=== PATIENT | male | born 1950 | race Two or more races ===

== ENCOUNTER 2017-10-13 13:25 | Day surgery (SDC) | payer MEDICARE ==
[~2017-10-13] VITALS: Ht 182.9 cm; Wt 122.5 kg
[2017-10-13 02:30] VITALS: PULSE 78; RESP 16; O2SAT 97
[~2017-10-13 13:25] MED LIST: LIDOCAINE HCL 1% PF 5 ML SYRINGE OTHER ONE; METOPROLOL TARTRATE 5 MG/5 ML VIAL IV ONE; PHENYLEPH/NS 1000 MCG/10 ML SYR IV ONE; PHENYLEPHRINE HCL 10 MG/ML VIAL IV ONE; PROPOFOL 200 MG/20 ML AMP IV ONE; ROCURONIUM INJ 50 MG/5 ML SYRINGE IV PUSH ONE; SODIUM CHLOR 0.9% 250 ML INJ 250 ML IV ONE; SODIUM CHLORID 0.9% 500 ML INJ 1,000 ML IV ONE; ePHEDrine/NS 25 MG/5 ML SYRINGE IV ONE
[2017-10-13] MEDS ORDERED: LACTATED RINGER'S 1000 ML IV PRN (14:00)
[2017-10-13] MEDS ORDERED: METOPROLOL TARTRATE 25 MG TAB PO PRN (14:15)
[2017-10-13] MEDS ORDERED: CHLORHEXIDINE GLUCONATE 2 % 1 PACK (2 CLOTHS) TOPICAL PRN (14:15)
[2017-10-13] MEDS ORDERED: POVIDONE IODINE 5% (ANTISEPSIS KIT) 4 APPLICATIONS EACH NARE PRN (14:15)
[2017-10-13] MEDS ORDERED: SODIUM CHLORID 0.9% 500 ML IV PRN (14:15)
[2017-10-13 14:22] VITALS: BP 111/68; PULSE 86; RESP 18; TEMP 98.6; O2SAT 93
[2017-10-13] MEDS ORDERED: LORazepam 1 MG TAB SL SCH (14:30)
[2017-10-13] MEDS ORDERED: FURO40TA PO (14:41)
[2017-10-13] MEDS ORDERED: METF850T PO (14:41)
[2017-10-13] MEDS ORDERED: CHOL1CAP34 PO (14:41)
[2017-10-13] MEDS ORDERED: LISI-515 PO (14:41)
[2017-10-13] MEDS ORDERED: SPIR25TA PO (14:41)
[2017-10-13] MEDS ORDERED: AMLO10TA2 PO (14:41)
[2017-10-13] MEDS ORDERED: TRAZ100T10 PO (14:41)
[2017-10-13] MEDS ORDERED: NITR1SUB3 SL (14:41)
[2017-10-13] MEDS ORDERED: ECASA81 PO (14:41)
[2017-10-13] MEDS ORDERED: APIX5TAB PO (14:41)
[2017-10-13] MEDS ORDERED: CARV12.52 PO (14:41)
[2017-10-13 14:49] LABS: BASOPHIL # 0.1 TH/MM3 (0-0.2); BASOPHIL % 0.7 % (0.0-2.0); EOSINOPHIL # 0.1 TH/MM3 (0-0.4); EOSINOPHIL % 1.9 % (0.0-4.0); HEMOGLOBIN 12.4 GM/DL (13.0-17.0); LYMPHOCYTE # 1.8 TH/MM3 (1.0-4.8); MEAN CELL VOLUME 86.3 FL (80.0-100.0); MEAN CORPUSCULAR HEMOGLOBIN 28.8 PG (27.0-34.0); MEAN CORPUSCULAR HGB CONC 33.4 % (32.0-36.0); MEAN PLATELET VOLUME 9.1 FL (7.0-11.0); MONOCYTE # 0.8 TH/MM3 (0-0.9); NEUT % 64.4 % (16.0-70.0); PLATELET COUNT 261 TH/MM3 (150-450); RED BLOOD COUNT 4.29 MIL/MM3 (4.50-5.90); RED CELL DISTRIBUTION WIDTH 14.1 % (11.6-17.2); WHITE BLOOD COUNT 7.7 TH/MM3 (4.0-11.0)
[2017-10-13 14:58] LABS: BICARBONATE 25.8 MEQ/L (21.0-32.0); CALCIUM 9.5 MG/DL (8.5-10.1); CREATININE 1.77 MG/DL (0.60-1.30)
[2017-10-13 15:01] LABS: INTERNATIONAL NORMALIZED RATIO 1.1 RATIO; PROTHROMBIN TIME - PATIENT 10.7 SEC (9.8-11.6)
[2017-10-13] MEDS ORDERED: LEVOFLOXACIN 500 MG PREMIX INJ 100 ML IV ONE (16:09)
[2017-10-13] MEDS ORDERED: HEPARIN-NS/PF FLUSH BAG 2,000 ML IV FLUSH ONE (16:09)
[2017-10-13] MEDS: SODIUM CHLORID 0.9% 500 ML INJ 500 ML IV SCH (18:00)
[2017-10-13] MEDS ORDERED: PROTAMINE SULFATE 50 MG/5 ML VIAL ONE ×2 (18:26→20:57)
[2017-10-13] MEDS ORDERED: HEPARIN SODIUM - IV 10,000 UNITS/10 ML VIAL ONE (18:26)
[2017-10-13] MEDS ORDERED: HEPARIN-D5W 25,000 U/250 ML 250 ML ONE (18:26)
[2017-10-13] MEDS ORDERED: MIDAZOLAM HCL 2 MG/2 ML VIAL ONE (19:25)
[2017-10-13] MEDS ORDERED: FUROSEMIDE 40 MG/4 ML VIAL ONE (20:43)
[2017-10-13] MEDS ORDERED: ERGOCALCIFEROL (VIT D2) 50,000 UNIT CAP PO SCH (21:00)
[2017-10-13] MEDS ORDERED: LIDOCAINE HCL 1% 50 ML VIAL INFIL PRN (21:00)
[2017-10-13] MEDS ORDERED: ONDANSETRON HCL 4 MG/2 ML VIAL IV PUSH PRN (21:00)
[2017-10-13] MEDS ORDERED: LORazepam 2 MG/ML VIAL IV PUSH PRN (21:00)
[2017-10-13] MEDS ORDERED: oxyCODONE/ACETAMINOPHEN 5 MG/325 MG TAB PO PRN ×2 (21:00)
[2017-10-13] MEDS ORDERED: METOCLOPRAMIDE HCL 10 MG/2 ML VIAL IV PUSH PRN (21:00)
[2017-10-13] MEDS: APIXABAN 5 MG TABLET PO SCH (21:00)
[2017-10-13] MEDS ORDERED: SODIUM CHLOR 0.9% 250 ML INJ 250 ML IV PRN (21:00)
[2017-10-13] MEDS ORDERED: ATROPINE SULFATE 1 MG/ML VIAL IV PUSH PRN (21:00)
[2017-10-13] MEDS: traZODone HCL 100 MG TAB PO SCH (21:00)
[2017-10-13] MEDS ORDERED: BACITRACIN OINT 0.9 GM PKT TOP ONE (21:00)
--- NOTE | 2017-10-13 21:09 | CATHPROC ---
Patient Name: VIKTORIA CARRILLO Study #: [id number] Initial MD: Shea Simon Date of : 1950 Study Date: 10/13/2017 Cardiac Catheterization Report 10/13/2017 9:09:27 PM Financial #: [id number] 1 of 11 Patient Name: VIKTORIA CARRILLO Study #: [id number] Initial MD: Shea Simon Date of : 1950 Study Date: 10/13/2017 Entire Case Report Patient Information Patient Name VIKTORIA CARRILLO Date of 1950 Age 67 years Financial # [id number] Gender M AlternateID Lab Number 2 Room Number DC08 Height (in) 72.0 Height (cm) 182.9 BSA 2.41 Weight (lbs) 266.4 Weight (kg) 121.1 Patient Address/Phone Number Home Address [facility] Home Phone Number [address] [facility] [place] [address] Study Information Study Number Admission Scheduled Start Study Start [id number] Oct 13 2017 1:25PM 10/13/2017 Oct 13 2017 5:39PM [facility] Electrophysiology Study Admit Source Facility Department Other [facility] Physician and Clinical Staff Initial Shea Olvera Cna Gna Hiral Dove,SNAPPER ON TECH2 Other Anesthesia, GRANULAR OPERATOR Recorder Claudia Olmedo,DEVIN Scrub Pawan Lawrence,RT(R) Procedures Performed Procedure Location (Site) Vessel Name Ablation Procedure Cardioversion ICE CATHETER INSERT RA Atruim RF Ablation LT. ATRIUM LT. ATRIUM 10/13/2017 9:09:27 PM Financial #: [id number] 2 of 11 Patient Name: VIKTORIA CARRILLO Study #: [id number] Initial MD: Shea Simon Date of : 1950 Study Date: 10/13/2017 Equipment Time Segment Producer Description Size Mfg Part Number Used/Scraped NEEDLE, TRANSSEPTAL NRG 98 [id number] 17:59 [facility] Used C1 *[id number] [employer]/ EP [id number] 17:59 KIT, TRANSDUCER / AFIB Used PACER *[id number] CATHETER, TACTICATH ABLAT BUNDLE 17:59 [facility] Used 65 BUNDLE *[id number]- BUNDLE [id number] CATHETER, FR7 OPTIMA SPIRAL 17:59 [facility] [facility] FR7 *[id number]- Used BUNDLE BUNDLE [id number] 17:59 [employer] CATHETER, JSN, QUAD BUNDLE FR 5 *[id number]- Used BUNDLE [id number] 17:59 [employer] CATHETER, JSN, QUAD BUNDLE FR 5 *4170736- Used BUNDLE [id number] SET, COOL POINT TUBING 17:59 [employer] *1094134- Used BUNDLE BUNDLE SHEATH, FR8.5 STEERABLE SM 17:59 [employer] 71CM [id number] Used 71CM BUNDLE COVER, TRANSDUCER CABLE 612-113 17:59 [employer] Used ACUNAV *[id number] 17:59 CORDIS/PACER SHEATH, FR10 JESSICA 11CM FR 10 Used *[id number] 17:59 CORDIS/PACER SHEATH, FR9 JESSICA 11CM FR 9 [id number] Used [id number] 17:59 [employer] PACK, CCL CUSTOM * Used *[id number] 17:59 MEDLINE PACER GRAMAJO, LIMB * 2530 *0983867 Used [id number] 17:59 [employer] MEDICAL SHEATH, FR4.5 PRELUDE 11CM FR 4.5 Used 035ACT [id number] 17:59 NAMIC TUBING, HIGH PRESSURE 48" 48" Used *[id number] [id number] 17:59 NAMIC TUBING, HIGH PRESSURE 48" 48" Used *[id number] [id number] 17:59 [employer],WARM AIR CCL * Used *6850038 YS8851 17:59 [facility] MEDICAL ELECTRODE KIT, ELVIA X SURFACE * Used *2545740 197401 17:59 [facility] MEDICAL SHEATH, EPS, FR6 FAST CATH FR 6 Used *[id number] 17:59 [facility] MEDICAL SHEATH, EPS, FR7 FAST CATH FR 7 [id number] Used 897066 17:59 [facility] MEDICAL SHEATH, EPS, FR8 FAST CATH FR 8 Used *[id number] CATHETER, ACUNAV FR10 ICE [id number] 19:03 IKER FR 10 Used (IKER) *[id number] [facility] PAD, ELECTROSURGICAL 17:59 * [id number] *[id number] Used SURGICAL GROUNDING (BLUE) 10/13/2017 9:09:27 PM Financial #: [id number] 3 of 11 Patient Name: VIKTORIA CARRILLO Study #: [id number] Initial MD: Shea Simon Date of : 1950 Study Date: 10/13/2017 Insurance Information Insurance Payor Private Health Insurance Third Alliance Party Third Alliance Party Number [facility] History: Allergies Allergy Reaction No Known Allergies Medication Medication Total Dose (Bolus/Oral) Medication Total Dosage/Unit 1% XYLOCAINE 40 mL HEPARIN 68464 units METOPROLOL 5 mg PROTAMINE 50 mg 10/13/2017 9:09:27 PM Financial #: [id number] 4 of 11 Patient Name: VIKTORIA CARRILLO Study #: [id number] Initial MD: Shea Simon Date of : 1950 Study Date: 10/13/2017 Medications (Bolus/Oral) Medication Time Given Dosage/Unit Administered By Reason 1% XYLOCAINE 10/13/2017 6:56:47 PM 20 mL Shea Simon 20 mL 1% XYLOCAINE given in lab by Shea Simon in Left Groin via Subcutaneous. 1% XYLOCAINE 10/13/2017 7:01:02 PM 20 mL Shea Simon 20 mL 1% XYLOCAINE given in lab by Shea Simon in Right Groin via Subcutaneous. HEPARIN 10/13/2017 7:07:00 PM 69650 units Anesthesia, GRANULAR OPERATOR As per physicians v erbal order 06931 units HEPARIN given in lab by Anesthesia, GRANULAR OPERATOR via Peripheral IV. Ordered by Shea Simon. [place] son: As per physicians verbal order. HEPARIN 10/13/2017 7:21:19 PM 2000 units Anesthesia, GRANULAR OPERATOR As per physicians ve rbal order 2000 units HEPARIN given in lab by Anesthesia, GRANULAR OPERATOR via Peripheral IV. Ordered by Shea Simon. Reas on: As per physicians verbal order. HEPARIN 10/13/2017 7:32:11 PM 2000 units Anesthesia, GRANULAR OPERATOR As per physicians ve rbal order 2000 units HEPARIN given in lab by Anesthesia, GRANULAR OPERATOR via Peripheral IV. Ordered by Shea Simon. Reas on: As per physicians verbal order. HEPARIN 10/13/2017 7:46:53 PM 2000 units Anesthesia, GRANULAR OPERATOR As per physicians ve rbal order 2000 units HEPARIN given in lab by Anesthesia, GRANULAR OPERATOR via Peripheral IV. Ordered by Shea Simon. Reas on: As per physicians verbal order. HEPARIN 10/13/2017 8:01:12 PM 2000 units Anesthesia, GRANULAR OPERATOR As per physicians ve rbal order 2000 units HEPARIN given in lab by Anesthesia, GRANULAR OPERATOR via Peripheral IV. Ordered by Shea Simon. Reas on: As per physicians verbal order. HEPARIN 10/13/2017 8:01:59 PM 1500 units Anesthesia, GRANULAR OPERATOR As per physicians ve rbal order 1500 units HEPARIN given in lab by Anesthesia, GRANULAR OPERATOR via Peripheral IV. Ordered by Shea Simon. Reas on: As per physicians verbal order. drip increased. METOPROLOL 10/13/2017 8:42:00 PM 5 mg Anesthesia, GRANULAR OPERATOR As per physicians filemon bal order 5 mg METOPROLOL given in lab by Anesthesia, GRANULAR OPERATOR via Peripheral IV. Ordered by Shea Simon. Reason: As per physicians verbal order. PROTAMINE 10/13/2017 8:46:40 PM 40 mg Anesthesia, GRANULAR OPERATOR As per physicians filemon bal order 40 mg PROTAMINE given in lab by Anesthesia, GRANULAR OPERATOR via Peripheral IV. Ordered by Shea Simon. Reason: As per physicians verbal order. PROTAMINE 10/13/2017 8:57:34 PM 10 mg Anesthesia, GRANULAR OPERATOR As per physicians filemon bal order 10 mg PROTAMINE given in lab by Anesthesia, GRANULAR OPERATOR via Peripheral IV. Ordered by Shea Simon. Reason: As per physicians verbal order. Medication (Drip) Medication Time Given Dosage/Unit Concentration/Unit Diluent (ml) Solution HEPARIN DRIP 10/13/2017 7:21:33 PM 1000 units/hr 67633 units 250 D5W 1000 units/hr HEPARIN DRIP given in lab by Anesthesia, GRANULAR OPERATOR via Peripheral IV. Pump/Drip Flow = 10 ml /hr [place] [address] units in 250 ml. Ordered by Hanscy. [place] Reason: As per physicians verbal order. ISUPREL 10/13/2017 8:32:10 PM 10 mcg/min 1 mg 250 NaCl .9 10 mcg/min ISUPREL given in lab by Anesthesia, GRANULAR OPERATOR via Peripheral IV. Pump/Drip Flow = 150 ml/hr usi ng NaCl .9 with a concentration of 1 mg in 250 ml. Ordered by Shea Simon. Reason: As per physicians verbal order. LEVAQUIN 10/13/2017 6:34:16 PM 100 mL/hr 500 100 NaCl .9 100 mL/hr LEVAQUIN given in lab by Anesthesia, GRANULAR OPERATOR via Peripheral IV. Pump/Drip Flow = 0 ml/hr using NaCl .9 with a concentration of 500 in 100 ml. Ordered by Shea Simon. Reason: As per physicians verbal order. 10/13/2017 9:09:27 PM Financial #: [id number] 5 of 11 Patient Name: VIKTORIA CARRILLO Study #: [id number] Initial MD: Shea Simon Date of : 1950 Study Date: 10/13/2017 Initial Case Assessment Cardiovascular HR Rhythm NIBP Chest Pain 95 af 136/91 0 Edema Present Skin color Skin None Normal Warm Dry Circulatory - Right Pulses Dorsalis Pedis 1 Scale (0,1,2,3,4,d) Circulatory - Left Pulses Dorsalis Pedis 1 Scale (0,1,2,3,4,d) Circulatory - Lower Extremities Color Lower Right Color Lower Left Normal Normal Neurological State Oriented to time-place- Alert Moves all extremities person Respiration - General Respiration Rate SpO2 (%) (B/min) 18 97 10/13/2017 9:09:27 PM Financial #: [id number] 6 of 11 Patient Name: VIKTORIA CARRILLO Study #: [id number] Initial MD: Shea Simon Date of : 1950 Study Date: 10/13/2017 Final Case Assessment Cardiovascular HR Rhythm NIBP Chest Pain 76 sr 83/53 0 Edema Present Skin color Skin None Normal Warm Dry Circulatory - Right Pulses Dorsalis Pedis 1 Scale (0,1,2,3,4,d) Circulatory - Left Pulses Dorsalis Pedis 1 Scale (0,1,2,3,4,d) Circulatory - Lower Extremities Color Lower Right Color Lower Left Normal Normal Neurological State Lethargic Moves all extremities Respiration - General Respiration Rate SpO2 (%) (B/min) 20 90 Chronological Log Time Study Chronological Log 18:04:14 Patient arrived via Bed. 18:04:15 Patient Name, D.O.B, / Armband Verified By R.N. 18:04:16 Consent signed by the physician and the patient and verified by the [facility] staff. 18:04:16 Pre-op and post- op instructions given; patient acknowledges understanding of instructions. 18:04:20 Patient has been NPO for More than 6Hrs. 18:06:06 Skin Breakdown- generalized bruising and scabs 18:06:24 Patient Warmer Placed on the Table. 18:06:25 Disposable Defibrillator Pads Placed On Patient. 18:06:27 Kasie Prominences Protected 10/13/2017 9:09:27 PM Financial #: [id number] Patient Name: VIKTORIA CARRILLO Study #: [id number] Initial MD: Shea Simon Date of : 1950 Study Date: 10/13/2017 18:06:27 A # 20 IV was noted in the Forearm (left). Grade = 0 0.9ns kvo 18:06:28 A # 20 IV was noted in the Antecubital (right). Grade = 0 0.9ns kvo 18:06:29 History and physical on the chart. 18:06:53 Anesthesia at bedside. Assumes care of patient. Assessment: Initial Case, HR=95 BPM, Rhythm=af, YRPU=429/91 mmhg, Chest Pain=0, Edema=None, Col or=Normal, Skin = Warm, Dry Right Pulses: Ricco Ped=1 Left Pulses: Ricco Ped=1 18:20:32 Lower Right Extremities: Color=Normal Lower Left Extremities: Color=Normal Neurological: State=Alert, Ox3, ALVARADO Respiration: Resp=18 B/min, SpO2=97 % 18:25:25 Table restraints applied according to hospital policy 18:30:00 Anesthesia present for intubation. 14 fr foey inserted w/o difficulty by MM. Clear yellow u rine obtained. 100 mL/hr LEVAQUIN given in lab by Anesthesia, GRANULAR OPERATOR via Peripheral IV. Pump/Drip Flow = 0 ml/hr using NaCl .9 with 18:34:16 a concentration of 500 in 100 ml. Ordered by Shea Simon. Reason: As per physicians verbal or elaine. 18:34:43 Bilateral groins prepped with 2% chlorhexidine, and draped after a 3 minute waiting time. 18:40:51 MD paged 18:40:56 MD responded 18:42:14 Reference ECG taken 18:50:32 MD arrived. Time Out. Correct patient, procedure, procedure equipment, site and side verified with physicia n present. Time 18:52:44 concurred by MD, individual staff and GRANULAR OPERATOR. 18:52:46 Case Start 18:52:49 EVIN in progress 18:56:26 Evin complete 18:56:47 20 mL 1% XYLOCAINE given in lab by Shea Simon in Left Groin via Subcutaneous. 18:57:00 Vascular access was obtained in the Fem Vein (left). 18:57:22 Vascular access was obtained in the Fem Vein (left). 18:57:29 Vascular access was obtained in the Fem Vein (left). 18:57:42 Vascular access was obtained in the Fem Art (left). A SHEATH, FR4.5 PRELUDE 11CM FR 4.5 was advanced into the Fem Art (left) using the Modified Kassy phyllis technique. 18:58:03 0.9ns pressure bag connected. 19:00:39 A SHEATH, EPS, FR6 FAST CATH FR 6 was advanced into the Fem Vein (left) using the Modified Seldinger technique. 19:00:48 A SHEATH, EPS, FR7 FAST CATH FR 7 was advanced into the Fem Vein (left) using the Modified Seldinger technique. 19:00:53 A SHEATH, FR10 JESSICA 11CM FR 10 was advanced into the Fem Vein (left) using the Modified S eldinger technique. 19:01:02 20 mL 1% XYLOCAINE given in lab by Shea Simon in Right Groin via Subcutaneous. 19:01:13 Vascular access was obtained in the Fem Vein (right). 19:01:20 A SHEATH, EPS, FR8 FAST CATH FR 8 was advanced into the Fem Vein (right) using the Modified Seldinger technique. A CATHETER, JSN, QUAD BUNDLE FR 5 was advanced vis Fem Vein (left) and placed in the CS. Placem ent was visually 19:02:17 confirmed under fluoroscopy. A CATHETER, JSN, QUAD BUNDLE FR 5 was advanced vis Fem Vein (left) and placed in the HIS. Place ment was 19:02:25 visually confirmed under fluoroscopy. 10/13/2017 9:09:27 PM Financial #: [id number] 8 of 11 Patient Name: VIKTORIA CARRILLO Study #: [id number] Initial MD: Shea Simon Date of : 1950 Study Date: 10/13/2017 19:03:20 CATHETER, ACUNAV FR10 ICE ([employer]) FR 10 Was Postioned. A SHEATH, FR8.5 STEERABLE SM 71CM BUNDLE 71CM was exchanged in the Fem Vein (right). This was n ecessary in 19:03:34 order for catheter support. 19:06:06 [place] [address] units HEPARIN given in lab by Anesthesia, GRANULAR OPERATOR via Peripheral IV. Ordered by Erick Simon Reason: As per 19:07:00 physicians verbal order. 19:08:40 A eps was advanced to the right atrium and passed through the septal wall to the left atriu m. 19:08:49 Malo out A CATHETER, FR7 OPTIMA SPIRAL BUNDLE FR7 was advanced vis Fem Vein (right) and placed in the LA . Placement 19:09:00 was visually confirmed under fluoroscopy. Mapping in progress. 19:12:26 Activated Clotting Time Drawn 19:20:41 ACT (Normal Range 90-180) = 310 2000 units HEPARIN given in lab by Anesthesia, GRANULAR OPERATOR via Peripheral IV. Ordered by Shea Simon . Reason: As per 19:21:19 physicians verbal order. 1000 units/hr HEPARIN DRIP given in lab by Anesthesia, GRANULAR OPERATOR via Peripheral IV. Pump/Drip Flow = 10 ml/hr using 19:21:33 [place] [address] units in 250 ml. Ordered by Shea Simon. Reason: As per phdeborah sicians verbal order. 19:22:16 Mapping complete. Catheter was removed A CATHETER, TACTICATH ABLAT 65 BUNDLE was advanced vis Fem Vein (right) and placed in the LA. P lacement was 19:22:27 visually confirmed under fluoroscopy. 19:22:41 RF Ablation of the LT. ATRIUM with a CATHETER, TACTICATH ABLAT 65 BUNDLE. 19:23:31 Beginning temp 36.4 19:26:23 Activated Clotting Time Drawn 19:31:56 ACT (Normal Range 90-180) = 334 2000 units HEPARIN given in lab by Anesthesia, GRANULAR OPERATOR via Peripheral IV. Ordered by Shea Simon . Reason: As per 19:32:11 physicians verbal order. 19:38:23 Activated Clotting Time Drawn 19:45:49 ACT (Normal Range 90-180) = 342 2000 units HEPARIN given in lab by Anesthesia, GRANULAR OPERATOR via Peripheral IV. Ordered by Shea Simon . Reason: As per 19:46:53 physicians verbal order. 19:49:15 Activated Clotting Time Drawn 19:55:19 Activated Clotting Time Redrawn 20:01:03 ACT (Normal Range 90-180) = 348 2000 units HEPARIN given in lab by Anesthesia, GRANULAR OPERATOR via Peripheral IV. Ordered by Shea Simon . Reason: As per 20:01:12 physicians verbal order. 1500 units HEPARIN given in lab by Anesthesia, GRANULAR OPERATOR via Peripheral IV. Ordered by Shea Simon . Reason: As per 20:01:59 physicians verbal order. drip increased. 20:05:00 Activated Clotting Time Drawn 20:09:28 Activated Clotting Time Drawn 20:15:40 ACT (Normal Range 90-180) = 369 20:22:05 Ablation complete. Catheter out. Mapping catheter in. 20:23:11 ECG rhythm of AF noted. Patient cardioverted at 200 joules. Success synch 20:23:39 Monitor SR. 10 mcg/min ISUPREL given in lab by Anesthesia, GRANULAR OPERATOR via Peripheral IV. Pump/Drip Flow = 150 ml/ hr using NaCl .9 20:32:10 with a concentration of 1 mg in 250 ml. Ordered by Shea Simon. Reason: As per physicians filemon bal order. 20:40:57 Isuprel off. 10/13/2017 9:09:27 PM Financial #: [id number] Patient Name: VIKTORIA CARRILLO Study #: [id number] Initial MD: Shea Simon Date of : 1950 Study Date: 10/13/2017 5 mg METOPROLOL given in lab by Anesthesia, GRANULAR OPERATOR via Peripheral IV. Ordered by Shea Simon. Reason: As per 20:42:00 physicians verbal order. 20:42:06 Mapping catheter out. 20:42:33 All catheter(s) removed without difficulty A SHEATH, FR9 JESSICA 11CM FR 9 was exchanged in the Fem Vein (right). This was necessary in or elaine to minimize 20:43:00 site leakage. 20:45:03 PACU called. Spoke to Axel 20:45:25 Bedside Report will be given. 20:46:00 Ablation procedure performed: AFIB. 20:46:05 EP Procedure was performed. 40 mg PROTAMINE given in lab by Anesthesia, GRANULAR OPERATOR via Peripheral IV. Ordered by Shea Simon. Reason: As per 20:46:40 physicians verbal order. 20:52:32 Sheath(s) left in place, secured, 0.9ns kvo connected and will be removed in Holding Area 20:53:47 Activated Clotting Time Drawn 20:53:53 Pt extubated. 20:54:35 Case End 20:54:35 No case complications noted. 20:54:36 Cine recording checked. Assessment: Final Case, HR=76 BPM, Rhythm=sr, NIBP=83/53 mmhg, Chest Pain=0, Edema=None, Color =Normal, Skin = Warm, Dry Right Pulses: Ricco Ped=1 Left Pulses: Ricco Ped=1 20:54:39 Lower Right Extremities: Color=Normal Lower Left Extremities: Color=Normal Neurological: State=Lethargic, ALVARADO Respiration: Resp=20 B/min, SpO2=90 % 20:55:23 Defibrillator and ground pads removed. Skin intact. 20:56:30 ACT (Normal Range 90-180) = 195 10 mg PROTAMINE given in lab by Anesthesia, GRANULAR OPERATOR via Peripheral IV. Ordered by Shea Simon. Reason: As per 20:57:34 physicians verbal order. 21:07:24 Patient moved to stretcher 21:08:44 ACT (Normal Range 90-180) = 181 End Study - Contrast Media Used In Study Contrast Total Opened (mL) Total Used (mL) Total Wasted (mL) Unspecified 0 0 0 End Study - Radiation Exposure Fluoro Time (minutes) 1.2 10/13/2017 9:09:27 PM Financial #: [id number] Patient Name: VIKTORIA CARRILLO Study #: [id number] Initial MD: Shea Simon Date of : 1950 Study Date: 10/13/2017 End Study - Patient Disposition Complications Transferred To Interventional Outcome No Telemetry Bed successful 10/13/2017 9:09:27 PM Financial #: [id number]
[2017-10-13] MEDS ORDERED: DO NOT ADM ANY ANTICOAGULANT DRUGS PRN (21:18)
[2017-10-13] MEDS ORDERED: *morphine SULFATE 4 MG/ML PERIprocedure ONLY ONE (22:41)
[2017-10-13] MEDS ORDERED: PLEASE DISCONTINUE PREVIOUS SUPPLEMENTAL SCALE INSULIN ORDERS ONE (23:00)
[2017-10-13] MEDS ORDERED: DEXTROSE 50% IN WATER 50 ML VIAL(D50) IV PUSH PRN (23:00)
[2017-10-13] MEDS ORDERED: GLUCAGON 1 MG/ML VIAL OTHER PRN (23:00)
[2017-10-13 23:30] VITALS: BP 112/67; PULSE 65; RESP 16; O2SAT 98
[2017-10-13 23:45] VITALS: PULSE 66; RESP 16; O2SAT 98
[2017-10-14] VITALS (14 sets, daily range): BP systolic 109–141; BP diastolic 65–81; PULSE 66–90; RESP 16–18; TEMP 98.2–98.3; O2SAT 94–100
[2017-10-14] MEDS: CARVEDILOL 12.5 MG TAB PO SCH ×3 (01:09→22:19)
[2017-10-14] MEDS: FUROSEMIDE 40 MG TAB PO SCH ×2 (01:09→09:00)
[2017-10-14 06:47] LABS: INTERNATIONAL NORMALIZED RATIO 1.1 RATIO
[2017-10-14] MEDS: SODIUM CHLORID 0.9% 500 ML INJ 500 ML IV SCH ×2 (07:10→22:35)
[2017-10-14] MEDS: MEDIUM DOSE INSULIN NOVOLIN REGULAR SUPPLEMENTAL SCALE SQ SCH ×4 (08:00→22:35)
[2017-10-14] MEDS: SPIRONOLACTONE 25 MG TAB PO SCH (08:25)
[2017-10-14] MEDS: LISINOPRIL 20 MG TAB PO SCH (08:25)
[2017-10-14] MEDS ORDERED: PROPOFOL 200 MG/20 ML AMP IV ONE (12:00)
[2017-10-14] MEDS ORDERED: LIDOCAINE HCL 1% PF 5 ML SYRINGE OTHER ONE (12:00)
[2017-10-14] MEDS ORDERED: PHENYLEPH/NS 1000 MCG/10 ML SYR IV ONE (12:00)
[2017-10-14] MEDS ORDERED: SODIUM CHLOR 0.9% 250 ML INJ 250 ML ONE (18:40)
[2017-10-14] MEDS ORDERED: VANCOMYCIN 500 MG VIAL ONE (18:40)
[2017-10-14] MEDS ORDERED: VANCOMYCIN HCL 1000 MG VIAL ONE (18:40)
[2017-10-14] MEDS ORDERED: LIDOCAINE HCL 2% 20 ML VIAL ONE (18:40)
[2017-10-14] MEDS ORDERED: ceFAZolin INJ 1,000 MG VIAL ONE (18:40)
--- NOTE | 2017-10-14 19:10 | PD.CARD ---
Atrial Fibrillation Ablation PROCEDURE DATE: Oct 13, 2017 PROCEDURES PERFORMED: 1. Electrophysiology study on Isuprel infusion 2. CS cannulation 3. 3-D mapping 4. Transseptal approach 5. Right and left heart catheterization 6. Intracardiac echo 7. Radiofrequency ablation of atrial fibrillation 8. Pulmonary vein isolation 9. Posterior wall ablation 10. Mitral valve isolation 11. Mitral line creation 12. Left atrial tachycardia ablation 13. Roof line creation 14. Floor line creation 15. Anterior wall ablation 16. left atrial appendage isolation 17. Cardioversion INDICATIONS FOR THE PROCEDURE Mr. Castano is a 67-year-old Other male with hx of atrial fibrillation, very symptomatic, congestive heart failure referred for electrophysiology study and ablation. The risks, the nature and the benefits of the procedure were clearly stated to him. The risks include pneumothorax, cardiac perforation, stroke, need for open heart surgery and even . The patient understood and agreed to proceed. DESCRIPTION OF THE PROCEDURE IN DETAIL As written informed consent was obtained prior to esophageal echocardiogram, the patient was kept on the table where he was prepped and draped in the usual sterile fashion. Conscious sedation was initiated and maintained throughout the procedure by the anesthesiologist. Once sedation was verified, the right and left inguinal areas were anesthetized with 2% Xylocaine. Using modified Seldinger technique, the left femoral vein was cannulated on three occasions, three guidewires were advanced. Over the wire a 6, 7 and a 10-Welsh Hemaquet were advanced. Then the left femoral artery was cannulated on one occasion, one guidewire was advanced. Over the wire a 4-Welsh Hemaquet was advanced. Then the right femoral vein was cannulated on one occasion, one guidewire was advanced. Over the wire a 8-Welsh Hemaquet was advanced. Then under fluoroscopic guidance through the 6 and 7-Welsh Hemaquet, two 5-Welsh Larry curved quadripolar electrophysiology catheters were advanced and placed around the His as well as coronary sinus. Basic interval was measured. The patient was in atrial fibrillation. Through the 10-Welsh Hemaquet, a Cordis Arellano AcuNav intracardiac echo catheter was advanced and placed at the right atrium. Multiple view was obtained. There was no pericardial effusion, pulmonary vein was seen, atrial septal was visualized. Then the 8-Welsh Hemaquet in the right femoral vein was exchanged for Agilis transseptal sheath that was placed all the way to the superior vena cava. Through the sheath a Ayaan needle was advanced, then the sheath, the dilator and the needle were progressed until foci engaged. Once engaged, the needle was advanced. RF was delivered for 2 seconds. I was able to cross into the left atrium. Once the needle crossed, the dilator was advanced. Once the dilator crossed, the sheath was advanced. Once the sheath crossed, the dilator and the needle were removed. At this point I did flood the system and fluid movement was seen in the left atrium the indicates the sheath is in good position. The patient already received 12,000 units of heparin. The goal is to keep an ACT around 350 during ablation. Then through the sheath a St. Andres 20 pulse circumferential catheter was advanced. Using Skyonic endocardial solution mapping system, a two-dimensional configuration of the left atrium was obtained. Points were taken at the left superior and inferior veins, right superior and inferior veins, mitral valve, and appendages. Then through the sheath a St. Andres TactiCath 65cm 3.5mm irrigated tipped mapping and radiofrequency ablation catheter was advanced. Esophageal probe was placed temperature monitoring during ablation. When it increased to 0.5 degrees Celsius above baseline, I moved to a different area of the atrium. First I did isolate the left superior and inferior vein. I did make a big hughes around the veins. Posterior was ablated. Then a roof line was created, a floor line was created, a mitral line was isolated, then the mitral valve was isolated. At that point the patient was in left atrial tachycardia. I did create a line from the floor to the roof area, passing by the left atrial appendage. The left atrial appendage was isolated. Then the right superior and inferior veins were isolated. I did remap the atrium. There is no significant signal into the veins. At this point I decided to proceed with cardioversion. A 200 sync biphasic joule was delivered that converted the patient into sinus rhythm. At that point I did advance the circumferential catheter again into the vein. There was no signal into the vein, pacing from the vein showed no conduction to the atrium. Isuprel infusion was initiated at 10 mcg for over minutes. No tachyarrhythmia was induced, post Isuprel no tachyarrhythmia was induced. At that point the procedure was complete. All catheters were removed , atrial septal sheath was exchanged for 9-Welsh Hemaquet, intracardiac echo showed no pericardial effusion. There is still good flow in the pulmonary vein. The patient is going to be transferred to the recovery room. No incident report. The patient tolerated the procedure. Blood loss was minimal. FINDINGS 1. Electrocardiogram: At baseline the patient was in atrial fibrillation, post procedure the patient was in sinus rhythm. 2. Basic interval: Base cycle length was around 480. Post ablation she was around 1020 milliseconds. AH at 60 and HV at 66 milliseconds. 3. Tachyarrhythmia: Atrial fibrillation was mapped and ablated. Atrial tachycardia was ablated. The ablation was successful. CONCLUSION Successful electrophysiology study, mapping, radiofrequency ablation of atrial fibrillation, left atrial tachycardia, pulmonary vein isolation, posterior ablation, mitral valve isolation, mitral line creation, roof line creation, floor line creation, left atrial tachycardia, and cardioversion. COMMENTS AND RECOMMENDATIONS The patient is going to be transferred to the telemetry unit. Will be observed and when stable can be discharged home. Shea Simon MD Oct 14, 2017 19:10
--- NOTE | 2017-10-14 19:11 | CATHPROC ---
Patient Name: VIKTORIA CARRILLO Study #: [id number] Initial MD: Shea Simon Date of : 1950 Study Date: 10/14/2017 Cardiac Catheterization Report 10/14/2017 7:11:38 PM Financial #: [id number] 1 of 8 Patient Name: VIKTORIA CARRILLO Study #: [id number] Initial MD: Shea Simon Date of : 1950 Study Date: 10/14/2017 Entire Case Report Patient Information Patient Name VIKTORIA CARRILLO Date of 1950 Age 67 years Financial # [id number] Gender M AlternateID Lab Number 2 Room Number 251 Height (in) 72.0 Height (cm) 182.8 BSA 2.42 Weight (lbs) 269.5 Weight (kg) 122.5 Patient Address/Phone Number Home Address [facility] Home Phone Number [facility] [id number] Study Information Study Number Admission Scheduled Start Study Start [id number] Oct 13 2017 1:25PM 10/14/2017 Oct 14 2017 5:45PM [facility] Cardiac Pacer/ICD Admit Source Facility Department [facility] - Joinery Setter Out Physician and Clinical Staff Initial Shea Olvera Pets Salesperson Pawan Lawrence,RT(R) Other Anesthesia, GROCERY CARRIER Recorder Claudia Olmedo,DEVIN Scrub Yodit Lara RCIS Procedures Performed Procedure Lead Insertion 10/14/2017 7:11:38 PM Financial #: [id number] 2 of 8 Patient Name: VIKTORIA CARRILLO Study #: [id number] Initial MD: Shea Simon Date of : 1950 Study Date: 10/14/2017 Equipment Time Marketing Systems Manager Description Size Mfg Part Number Used/Scraped DEFIBRILLATOR, INTICA 7 VR-T 18:57 BIOTRONIK VVE-VDDR [id number] Used DX 18:50 BIOTRONIK LEAD, PLEXA PRO-MRI DF 65/15 [id number] Used DERMABOND, ADHESIVE SKIN VM12 17:49 CORDIS/PACER * Used GLUE MINI *[id number] TP-1103 17:49 MEDLINE INDUSTRIES SUTURE, STRIP PLUS 1/2" * Used *[id number] 17:49 MEDLINE PACER GRAMAJO, LIMB * 2530 *[id number] Used [id number] 17:49 MEDLINE PACER PACK, PACER CUSTOM * Used *[id number] 18:50 [employer]gent [employer] PACER SAFE SHEATH, FR8, 13CM FR 8 CLS-1008 Used 18:34 Needle Sponge Count 2 22 Used 18:34 Needle Sponge Count 2 2 Used 18:34 Needle Sponge Count 20 200 Used SUTURE, 0 ETHIBOND [CT1] (CX21D), 8pk SUTURE, 2-0 VICRYL [CT1] ([id number]) SUTURE, 2-0 VICRYL [CT1] ([id number]) [id number] 17:49 [employer] BLANKET,WARM AIR CCL * Used *[id number] [facility] PAD, ELECTROSURGICAL 17:49 * [id number] *[id number] Used SURGICAL GROUNDING ORANGE [id number] 17:49 [employer] JORGE. / * Used *77353 Equipment Model, Serial, Lot Number and Expiration Data Description Model Number Serial Number Lot Number Expiration Date DEFIBRILLATOR, INTICA 7 VR-T DX [id number] 01-24-2019 LEAD, PLEXA PRO-MRI DF 65/15 [id number] 08-25-2019 Insurance Information Insurance Payor Private Health Insurance Third Democrat Third Democrat Number [facility] History: Allergies Allergy Reaction No Known Allergies 10/14/2017 7:11:38 PM Financial #: [id number] 3 of 8 Patient Name: VIKTORIA CARRILLO Study #: [id number] Initial MD: Shea Simon Date of : 1950 Study Date: 10/14/2017 History: Risk Factors Hypertension Dyslipidemia Previous ID Previous Heart Failure Yes Yes Yes Yes Cerebrovascular Chronic Lung Diabetes Disease Disease Labs Hgb (g/dl) Hct (%) RBC (MIL/MM3) WBC (l/cumm) Platelets (thousands) 11.60-17.00 35.00-51.00 4.00-5.90 4.00-11.00 150.00-450.00 12.0 37 4.3 7.7 261 Glucose (mg/dl) BUN (mg/dl) Creatinine (mg/dl) BUN:Creatinine (1:x) 74.00-106.00 7.00-18.00 0.50-1.30 10.00-20.00 155 44 1.7 25.9 Na (meq/l) K (meq/l) 136.00-145.00 3.50-5.10 139 4.4 INR (PTT:PT) 0.90-1.10 1.1 Medication Medication Total Dose (Bolus/Oral) Medication Total Dosage/Unit 2% XYLOCAINE 50 mL Medications (Bolus/Oral) Medication Time Given Dosage/Unit Administered By Reason 2% XYLOCAINE 10/14/2017 6:44:30 PM 50 mL Shea Simon 50 mL 2% XYLOCAINE given in lab by Shea Simon in Left upper chest via Subcutaneous. 10/14/2017 7:11:38 PM Financial #: [id number] 4 of 8 Patient Name: VIKTORIA CARRILLO Study #: [id number] Initial MD: Shea Simon Date of : 1950 Study Date: 10/14/2017 Initial Case Assessment Cardiovascular HR Rhythm NIBP Chest Pain 75 sr 130/68 0 Edema Present Skin color Skin None Normal Warm Dry Circulatory - Right Pulses Radial 1 Scale (0,1,2,3,4,d) Circulatory - Left Pulses Radial 1 Scale (0,1,2,3,4,d) Circulatory - Lower Extremities Color Lower Right Color Lower Left Normal Normal Neurological State Oriented to time-place- Alert Moves all extremities person Respiration - General Respiration Rate SpO2 (%) (B/min) 20 98 10/14/2017 7:11:38 PM Financial #: [id number] 5 of 8 Patient Name: VIKTORIA CARRILLO Study #: [id number] Initial MD: Shea Simon Date of : 1950 Study Date: 10/14/2017 Final Case Assessment Cardiovascular HR Rhythm NIBP Chest Pain 86 sr 92/53 0 Edema Present Skin color Skin None Normal Warm Dry Circulatory - Right Pulses Radial 1 Scale (0,1,2,3,4,d) Circulatory - Left Pulses Radial 1 Scale (0,1,2,3,4,d) Circulatory - Lower Extremities Color Lower Right Color Lower Left Normal Normal Neurological State Lethargic Moves all extremities Respiration - General Respiration Rate SpO2 (%) (B/min) 16 100 Chronological Log Time Study Chronological Log 18:01:44 Patient arrived via Bed. 18:01:46 Patient Name, D.O.B, / Armband Verified By R.N. 18:01:47 Consent signed by the physician and the patient and verified by the Joinery Setter Out staff. 18:01:48 Pre-op and post- op instructions given; patient acknowledges understanding of instructions. 18:01:50 Verbal Stimulation=2 Physical Stimulation=2 Airway=2 Respiration=2 TOTAL=8. (0=absent, 1=li mited, 2=present) 18:02:00 Presedation assessment performed by Joinery Setter Out RN. 18:02:02 Patient has been NPO for More than 6Hrs. 18:02:03 Skin Breakdown-bruising bilateal arms 18:02:22 Patient Warmer Placed on the Table. 10/14/2017 7:11:38 PM Financial #: [id number] 6 of 8 Patient Name: VIKTORIA CARRILLO Study #: [id number] Initial MD: Shea Simon Date of : 1950 Study Date: 10/14/2017 18:02:23 Disposable Defibrillator Pads Placed On Patient. 18:02:23 Kasie Prominences Protected 18:05:34 Anesthesia at bedside. Assumes care of patient. [place] 18:12:02 Bovie ground pad applied to: right thigh Assessment: Initial Case, HR=75 BPM, Rhythm=sr, BYDV=228/68 mmhg, Chest Pain=0, Edema=None, Col or=Normal, Skin = Warm, Dry Right Pulses: Radial=1 Left Pulses: Radial=1 18:14:16 Lower Right Extremities: Color=Normal Lower Left Extremities: Color=Normal Neurological: State=Alert, Ox3, ALVARADO Respiration: Resp=20 B/min, SpO2=98 % 18:22:31 Table restraints applied according to hospital policy 18:25:11 2% CHLORHEXIDINE GLUCONATE WASH AND NASAL SWIPE DONE PRIOR TO PROCEDURE. 18:29:00 Upper Chest Prepped Times Two. 18:31:13 A # 20 IV was noted in the Antecubital (left). Grade = 0 0.9ns kvo 18:31:14 A # 20 IV was noted in the Antecubital (right). Grade = 0 0.9ns kvo 18:31:15 History and physical on the chart or being dictated. First Sponge And Instrument Count Done by Yodit Lara RCIS. 18:33:40 Hypo's: 2, Sponges: 20, Bovie/scratch: 2 Sutures: 10, Blades: 1, Instruments: 26, Syveck Patches: ~SYVECK PATCH~ 18:37:25 Reference ECG taken Time Out. Correct patient, procedure, procedure equipment, site and side verified with physicia n present. Time 18:44:00 concurred by MD, individual staff and GROCERY CARRIER. Time Out #2 - Consents verified, patient in correct position, all results are labled and displa yed, safety precautions 18:44:16 taken, antibiotics administered. Time out concurred by MD, individual staff and GROCERY CARRIER in procedu re 18:44:21 Case Start 18:44:30 50 mL 2% XYLOCAINE given in lab by Shea iSmon in Left upper chest via Subcutaneous. 18:46:35 Surgical Incision Made. 18:47:10 A pocket was created at the L Upper Chest. 18:49:18 Vascular access was obtained in the Subclav. Vein (Lft. 18:49:35 A SAFE SHEATH, FR8, 13CM FR 8 was advanced into the Subclav. Vein (Lft using the Modified S eldinger technique. 18:49:49 Pocket flushed with antibiotic solution 18:50:15 A LEAD, PLEXA PRO-MRI DF 65/15 was inserted and positioned in the RV. 18:51:06 Lead placement verified under fluoroscopy 18:51:49 The RV lead impedance and threshold being tested. 18:55:01 The RV lead impedance and threshold being tested. 18:55:58 PACU called. Spoke to Axel 18:56:55 Bedside Report will be given. 18:56:58 A DEFIBRILLATOR, INTICA 7 VR-T DX VVE-VDDR was connected and placed in the pocket. 18:59:46 The RV lead was sutured to the fascia. 10/14/2017 7:11:38 PM Financial #: [id number] 7 of 8 Patient Name: VIKTORIA CARRILLO Study #: [id number] Initial MD: Shea Simon Date of : 1950 Study Date: 10/14/2017 Second Sponge And Instrument Count Done by Yodit Lara RCIS. 19:01:03 Hypo's: 2, Sponges: 20, Bovie/scratch: 2 Sutures: 10, Blades: 1, Instruments: , Syveck Patches: ~SYVECK PATCH~ 19:05:00 The pocket was closed. 19:05:11 Implant Procedure was performed. 19:05:18 A ICD Implant . (Single) Final Sponge And Instrument Count Done by Yodit Lara RCIS. 19:05:44 Hypo's: 2, Sponges: 20, Bovie/scratch: 2 Sutures: 10, Blades: 1, Instruments: 26, Syveck Patches: ~SYVECK PATCH~ 19:07:15 Steri-strips and a sterile dressing applied to site. 19:07:20 A sling will be placed on the affected arm. Assessment: Final Case, HR=86 BPM, Rhythm=sr, NIBP=92/53 mmhg, Chest Pain=0, Edema=None, Color =Normal, Skin = Warm, Dry Right Pulses: Radial=1 Left Pulses: Radial=1 19:10:08 Lower Right Extremities: Color=Normal Lower Left Extremities: Color=Normal Neurological: State=Lethargic, [place] Respiration: Resp=16 B/min, AdV4=931 % 19:10:55 Case End. Pt extubated. 19:11:21 Implantable Device card placed in patient's chart. 19:11:24 Defibrillator and ground pads removed. Skin intact. 19:16:27 [facility] - Contrast Media Used In Study Contrast Total Opened (mL) Total Used (mL) Total Wasted (mL) Unspecified 0 0 0 End Study - Maximum Contrast Load Max Contrast Load (mL) 360.3 End Study - Radiation Exposure Fluoro Time (minutes) 1.8 End Study - Patient Disposition Complications Transferred To Interventional Outcome No Telemetry Bed successful 10/14/2017 7:11:38 PM Financial #: [id number]
--- NOTE | 2017-10-14 19:15 | PD.CARD ---
SINGLE CHAMBER DEFIB IMPLANT PROCEDURE DATE: Oct 14, 2017 NYHA Classification: Class II (Mild) Prevention: Primary Single Chamber Defib Implant PROCEDURE: Single chamber defibrillator implantation and device testing. INDICATIONS: Mr. Castano is a 67 -year-old Other male with hx of congestive heart failure, ejection fraction 25%, on optimal medical management referred for defibrillator implantation for sudden prevention. The risks, the nature and the benefit of the procedure are clearly stated to him . Risks include pneumothorax , cardiac perforation, stroke and even . He understood and agreed to proceed. PROCEDURE: After written, informed consent was obtained, the patient was brought to the EP Lab where he was prepped and draped in the sterile fashion. Conscious sedation was initiated and maintained throughout the procedure by anesthesiologist. Once sedation was verified, the left infraclavicular area was anesthetized with 2% Xylocaine. Using modified Seldinger technique, the left subclavian vein was cannulated on one occasion and one guide wire was advanced. Then, using #11 blade scalpel, a 3-cm incision was made two fingerbreadths below left clavicle. This incision was then taken down to the deep fascial layer using Bovie cautery and blunt dissection. Into the inferomedial direction, a device pocket was dissected, then the wire was dissected into the pocket. A 2-0 Vicryl suture was placed around the wires to prevent bleeding. At this point, over the wire, the 9- Icelandic dilator and introducer was advanced. As dilator and wire were removed, an active fixation right ventricular pacing, sensing and defibrillatory lead was advanced. After adequate pacing and sensing thresholds were obtained, the lead was secured in the pocket with #2 Ethibond suture. At that point, the pocket was copiously irrigated with antibiotic solution. The leads were connected to the generator and placed into the pocket. I did proceed with wound closure. The deep fascial layer was approximated with 2-0 Vicryl suture in a continuous fashion. The subcutaneous layer was approximated with 2-0 Vicryl suture in a continuous fashion. The subcuticular layer was approximated with 2-0 Vicryl suture in a continuous fashion. Dermabond adhesive was applied to the wound, followed by a sterile pressure dressing. There was no complication. The patient tolerated procedure. Blood loss minimal. 1. Implanted Hardware: The implanted defibrillator generator is a Munetrix, model number 740874, serial number [id number]. The right ventricular pacing, sensing and defibrillatory lead is a Biotronik model number 243604, serial number [id number]. 2. Thresholds: The right ventricular pacing threshold in the bipolar mode was 0.7volts at 0.5 milliseconds, lead impedance 620 ohms and R-wave at 4.9 mV. 3. Settings: The device set in VVI 40 defibrillatory portion for two zones, one zone for ventricular tachycardia between 170 and 250 beats per minute. Initial therapy consists of one burst of ATP, one ramp, 81%, 10 pulse, 10 millisecond decremental, followed by 20, then 30 and all subsequent shocks at 40 joules defibrillatory shock, the second zone for ventricular fibrillation above 240 beats per minute, first therapy at 30 and all subsequent shocks at 40 joules defibrillatory shock. CONCLUSIONS: Successful defibrillator implantation. COMMENT AND RECOMMENDATIONS: The patient will be transferred to the telemetry unit, will be observed and when stable can be discharged home. Shea Simon MD Oct 14, 2017 19:15
[2017-10-14] MEDS ORDERED: *MEPERIDINE 25 MG INJ VIAL PERIprocedural Use ONLY ONE (19:37)
[2017-10-14] MEDS ORDERED: DO NOT ADM ANY ANTICOAGULANT DRUGS PRN (20:00)
[2017-10-14] MEDS ORDERED: ONDANSETRON HCL 4 MG/2 ML VIAL IV PUSH PRN (20:45)
[2017-10-14] MEDS ORDERED: SODIUM CHLORIDE 0.9% FLUSH 10 ML FLUSH IV FLUSH PRN (20:45)
[2017-10-14] MEDS: APIXABAN 5 MG TABLET PO SCH ×2 (21:00→22:19)
[2017-10-14] MEDS: traZODone HCL 100 MG TAB PO SCH (22:19)
[2017-10-14] MEDS: SODIUM CHLORIDE 0.9% FLUSH 10 ML FLUSH IV FLUSH SCH (22:19)
--- NOTE | 2017-10-14 22:19 | RADRPT ---
EXAM DATE/TIME: 10/14/2017 20:52 [facility] COMPARISON: No previous studies available for comparison. INDICATIONS : Post op pacemaker placement MEDICAL HISTORY : Cardiovascular disease. SURGICAL HISTORY : None. ENCOUNTER: Initial ACUITY: 1 day PAIN SCORE: 0/10 LOCATION: Bilateral chest FINDINGS: There is a single lead pacemaker in place from a left subclavian approach. The heart size is enlarged . The lungs are clear. No pneumothorax is seen. CONCLUSION: Cardiomegaly. The pacemaker appears well placed. Kiran Alegre MD on October 14, 2017 at 22:17 Board Certified Radiologist. This report was verified electronically.
[2017-10-14] MEDS: ceFAZolin 2 GM PREMIX 50 ML IV SCH (22:35)
[2017-10-15] VITALS (16 sets, daily range): BP systolic 124–141; BP diastolic 57–80; PULSE 66–89; RESP 16–18; TEMP 97.9–98.2; O2SAT 94–98
[2017-10-15] MEDS: ceFAZolin 2 GM PREMIX 50 ML IV SCH (06:34)
--- NOTE | 2017-10-15 09:05 | EKG ---
Date Performed: 10/14/2017 Time Performed: 00:54:50 PTAGE: 67 years EKG: Sinus rhythm with PAC(s) Left axis deviation IV conduction defect Possible inferior infarct - age undetermined [place] t[place] T wave changes are nonspecific Abnormal ECG PREVIOUS TRACING : 10/13/2017 21.56 DOCTOR: Shea Simon Interpretating Date/Time 10/15/2017 09:02:45
--- NOTE | 2017-10-15 09:07 | EKG ---
Date Performed: 10/13/2017 Time Performed: 21:56:28 PTAGE: 67 years EKG: Sinus rhythm WITH OCCASIONAL SUPRAVENTRICULAR PREMATURE COMPLEXES MARKED LEFT AXIS DEVIATION LEFT BUNDLE BRANCH B LOCK ABNORMAL ECG PREVIOUS TRACING : 10/13/2017 14.35 DOCTOR: Shea Simon Interpretating Date/Time 10/15/2017 09:03:43
--- NOTE | 2017-10-15 09:20 | EKG ---
Date Performed: 10/13/2017 Time Performed: 14:35:14 PTAGE: 67 years EKG: Atrial fibrillation. Left axis deviation IV conduction defect Anterolateral T wave changes are nonspecific Abnormal ECG NO PREVIOUS TRACING DOCTOR: Shea Simon Interpretating Date/Time 10/15/2017 09:15:49
[2017-10-15] MEDS: MEDIUM DOSE INSULIN NOVOLIN REGULAR SUPPLEMENTAL SCALE SQ SCH ×2 (09:58→12:46)
[2017-10-15] MEDS: SPIRONOLACTONE 25 MG TAB PO SCH (09:58)
[2017-10-15] MEDS: APIXABAN 5 MG TABLET PO SCH (09:58)
[2017-10-15] MEDS: metFORMIN HCL 850 MG TAB PO SCH ×2 (09:59→10:04)
[2017-10-15] MEDS: CARVEDILOL 12.5 MG TAB PO SCH (10:00)
[2017-10-15] MEDS: LISINOPRIL 20 MG TAB PO SCH (10:00)
[2017-10-15] MEDS: SODIUM CHLORIDE 0.9% FLUSH 10 ML FLUSH IV FLUSH SCH (10:01)
[2017-10-15] MEDS: ASPIRIN EC 81 MG TABEC PO SCH ×2 (10:01→10:04)
[2017-10-15] MEDS: FUROSEMIDE 40 MG TAB PO SCH ×2 (10:03→10:04)
--- NOTE | 2017-10-15 13:53 | ECHRPT ---
Indication: A FIB CONCLUSIONS No clot seen in left atrium and nor left atrial appendage Severe left ventricular systolic function. Ejection fraction EF 15-20. Moderate left atrial enlargement Mild mitral regurgitation. BP: / HR: Rhythm: Technical Quality: Medications Sedation was administered by anesthesiologist Complications none Proc. Components FINDINGS LEFT VENTRICLE Severely depressed EF 15-20% LEFT ATRIUM Moderate enlargement ATRIAL APPENDAGES Normal left atrial appendage size with no evidence of thrombus formation. ATRIAL SEPTUM Normal atrial septal thickness without atrial level shunting by limited color doppler interrogation. AORTA The aortic root and proximal ascending aorta are normal in size on limited imaging. MITRAL VALVE Mild mitral valve regurgitation. PERICADIUM no effusion Shea Simon MD (Electronically Signed) Final Date:15 October 2017 13:52
[2017-10-15] MEDS ORDERED: AMIO200T PO (14:18)
[2017-10-15] MEDS ORDERED: CEPH-460 PO (14:18)
--- NOTE | 2017-10-15 14:32 | MD ---
cc: Shea Simon MD DATE OF DISCHARGE: HISTORY OF PRESENT ILLNESS: Mr. Castano is a 67-year-old gentleman, congestive heart failure, cardiomyopathy, atrial fibrillation, who was admitted on 10/13/2017 due to atrial fibrillation and heart failure. During hospitalization on 10/13/2017, electrophysiology study was performed. Atrial fibrillation was ablated. Transesophageal echo was performed. Ejection fraction was still around 15-20%. Subsequently, the patient had a defibrillator implanted on 10/14/2017. The procedure was successful. PHYSICAL EXAMINATION: GENERAL: Today, alert, fully oriented. VITAL SIGNS: His blood pressure is 124/75, pulse 66, respiratory rate 18. LUNGS: Good air entry bilaterally. CARDIOVASCULAR: S1, S2, regular. No gallop. ABDOMEN: Obese. No mass. EXTREMITIES: No edema. SKIN: Left infraclavicular area with clean surgical wound. ASSESSMENT AND RECOMMENDATIONS: Mr. Castano is stable. He is going to be discharged home. Heart healthy diet recommended. The patient advised to exercise and lose weight. Also, a paper was provided for activity post-ablation and device. He is currently on amlodipine 10 mg a day, Eliquis 5 mg twice a day. He is on aspirin 81 mg a day. He is on Coreg 12.5 mg twice a day. He is on amiodarone 200 mg a day. He is on lisinopril 20 mg a day and trazodone 100 mg at bedtime. The patient is going to be discharged home. I will follow him at the office as previously scheduled. Case discussed with him and his . MD ERICH Henley/SURESH , 02:13 PM , 02:31 PM
--- NOTE | 2017-10-15 18:51 | EKG ---
Date Performed: 10/14/2017 Time Performed: 21:23:03 PTAGE: 67 years EKG: NORMAL Sinus rhythm , HR OF 76 LEFT AXIS DEVATION Left bundle branch block LOW LIMB LEAD VOLTAGE POOR R WAVE PROGRESSION, WHICH MAY BE DUE TO LOW LIMB LEAD VOLTAGE Compared to PREVIOUS TRACING , PACs are no longer present PREVIOUS TRACIN10/14/2017 00.54 DOCTOR: Basim Davis Interpretating Date/Time 10/15/2017 18:49:36
--- NOTE | 2017-10-15 18:51 | EKG ---
Date Performed: 10/15/2017 Time Performed: 05:29:42 PTAGE: 67 years EKG: Sinus rhythm Left axis deviation Left bundle branch block Poor R wave progression, probably due to the Left bundl e branch block Since the previous tracing, no significant change noted Abnormal ECG PREVIOUS TRACING : 10/14/2017 21.23 DOCTOR: Basim Davis Interpretating Date/Time 10/15/2017 18:50:18
--- NOTE | 2017-10-17 00:44 | EKG ---
Date Performed: 10/15/2017 Time Performed: 13:08:34 PTAGE: 67 years EKG: Atrial fibrillation Left axis deviation IV conduction defect Abnormal ECG PREVIOUS TRACING : 10/15/2017 05.29 Compared to previous tracing, now felt to be in AFib DOCTOR: Hamilton Mercer Interpretating Date/Time 10/17/2017 00:43:23
== END 2017-10-15 14:47 | disposition home or self-care (01) ==
LOC: HDIC 13:25 → HDOC 13:25 → HCIS 23:30 → HDOC 10-15 14:47
PROVIDERS: ATTEND Internal Medicine Interventional Cardiology
DX: I48.2 Chronic atrial fibrillation (principal); I11.0 Hypertensive heart disease with heart failure; I50.22 Chronic systolic (congestive) heart failure; E78.5 Hyperlipidemia, unspecified; R42 Dizziness and giddiness; R06.00 Dyspnea, unspecified; R53.83 Other fatigue; I42.9 Cardiomyopathy, unspecified; I73.9 Peripheral vascular disease, unspecified; I25.10 Atherosclerotic heart disease of native coronary artery without angina pectoris; R00.2 Palpitations; E11.9 Type 2 diabetes mellitus without complications; Z79.01 Long term (current) use of anticoagulants; Z86.73 Personal history of transient ischemic attack (TIA), and cerebral infarction without residual deficits; Z79.82 Long term (current) use of aspirin; Z79.84 Long term (current) use of oral hypoglycemic drugs
CPT/HCPCS: 00530; 33249; 71045; 80048; 82948; 85002; 85025; 85610; 85730; 86850; 86900; 86901; 92960; 93005; 93312; 93320; 93325; 93613; 93623; 93656; 93662; C1722; C1730; C1731; C1732; C1759; C1766; C1777; C2630; J0690; J1644; J1940; J1956; J2060; J2175; J2250; J2270; J2370; J2720; J2765; J3010; J3370; J7040; J7050